=== PATIENT | male | born 1995 | race Caucasian/White ===

== ENCOUNTER 2017-08-12 15:38 | Outpatient (CLI) | payer OTHER ==
[~2017-08-12 15:38] MED LIST: Gadobenate Dimeglumine 529 MG/1 ML (20ML VIAL) ONE
--- NOTE | 2017-08-12 17:30 | MRI ---
MRI BRAIN WITH AND WITHOUT CONTRAST: HISTORY: A 22-year-old male with headaches, dizziness, and blurred vision. Other specified intracranial injury without loss of consciousness, initial encounter. ICD-10: S0 6.890A. TECHNIQUE: Multiple sequences obtained in axial, sagittal, and coronal planes; pre and post IV injection of gado linium-based contrast agent: MultiHance 16 mL. FINDINGS: The ventricles are normal in size and configuration. There is no major intraaxial signal abnormality , restricted diffusion, abnormal intraaxial enhancement, mass, midline shift or any other mass effect , recent intraaxial hemorrhage, or extraaxial fluid collection. IMPRESSION: Normal. chao[] POS: [facility]
== END 2017-08-12 15:39 | disposition home or self-care (01) ==
LOC: SCSMRI 15:38
PROVIDERS: ATTEND Psychiatry & Neurology Neurology
DX: S06.890A Other specified intracranial injury without loss of consciousness, initial encounter (principal)
CPT/HCPCS: 70553; A9579